=== PATIENT | male | born 1985 | race Caucasian/White ===

== ENCOUNTER 2021-08-27 13:38 | Emergency (ER) | payer MEDICAID, SELFPAY ==
[2021-08-27 13:38] VITALS: BP 163/113; PULSE 112; RESP 18; TEMP 36.6; O2SAT 96; BMI 36.5
--- NOTE | 2021-08-27 13:40 | ECG_ITS ---
APPROVED REPORT Exam: Resting ECG HR:106 bpm ECG Measurements Heart Rate 106 AXES MD 163 P 60 QRSd 81 QRS 61 QT 318 T 46 QTc 380 Conclusion SINUS TACHYCARDIA ABNORMAL RHYTHM ECG UNCONFIRMED REPORT Electronically signed by : Hema Tobar MD 08/28/2021 10:11:19
--- NOTE | 2021-08-27 13:40 | XR_ITS ---
FINAL REPORT CLINICAL HISTORY: cough, place on center of chest around sternum, pt says was found unconscious today COMPARISON: 06/25/2018 FINDINGS: Two views of the chest were obtained. The heart size is normal. There is mild pulmonary vascular congestion which is new as compared to the prior exam. There is mild bibasilar atelectasis. There is no pneumothorax. There are left 7th and 8th rib fractures favored to be chronic. IMPRESSION: New, mild pulmonary vascular congestion. Mild bibasilar atelectasis. Reviewed, Interpreted and Dictated by Ok Anderson III, MD Transcribed by Vikki Shi Authenticated by Ok Anderson III, MD on 08/27/2021 03:16:45 PM [facility]
--- NOTE | 2021-08-27 13:40 | HMH.EDGENADL ---
ED Disposition Clinical Impression: Accidental overdose Qualifiers: Encounter type: initial encounter Qualified Code(s): T50.901A - Poisoning by unspecified drugs, medicaments and biological substances, accidental (unintentional), initial encounter Disposition: Home, Self-Care Condition on Discharge: Good Instructions: DI for Drug Overdose in Adults Prescriptions: Naloxone HCl 4 mg NS ONCE PRN #1 kit PRN Reason: Opioid Reversal Transmission Status: Received by [id number] Referrals: Provider,Referral, [Primary Care Provider] - Time of Disposition: 15:28 - Critical Care Critical Care Time: No Attestation: On , the high probability of a clinically significant, sudden or life threatening deterioration of the following system(s) required my full and direct attention, intervention and personal management. The time I documented below is in addition to time spent performing reported procedures but includes the following listed in this critical care notation. Medical Decision Making - Medical Records Medical records reviewed: Yes: I reviewed the patient's medical records. - Philippe Inquiry Pt receiving controlled substance: No Vital Signs: 08/27/21 13:38 08/27/21 14:00 08/27/21 14:31 Temperature 97.9 F Temperature Source Oral Pulse Rate 111 H 96 H Pulse Rate [Right Radial] 112 H Respiratory Rate 18 Blood Pressure 177/99 H 148/99 H Blood Pressure [Right Arm] 163/113 H Blood Pressure Mean 112 Blood Pressure Mean [Right Arm] 129 Blood Pressure Source [Right Arm] Automatic Cuff Blood Pressure Position [Right Arm] Sitting 02 Sat by Pulse Oximetry 96 91 L 93 L Oxygen Delivery Method Room Air Room Air 08/27/21 16:15 Temperature 97.9 F Temperature Source Pulse Rate 96 H Pulse Rate [Right Radial] Respiratory Rate 18 Blood Pressure 148/99 H Blood Pressure [Right Arm] Blood Pressure Mean Blood Pressure Mean [Right Arm] Blood Pressure Source [Right Arm] Blood Pressure Position [Right Arm] 02 Sat by Pulse Oximetry Oxygen Delivery Method Room Air Medical Decision Narrative: In summary this is a 35-year-old male with history of substance use disorder, on Vivitrol, presenting to the emergency department after an episode of unconsciousness. He admits to intentional Xanax ingestion. Concern for opiate ingestion. Received naloxone about 30 minutes ago. Will obtain chest x-ray and EKG. Plan to observe in the emergency department EKG shows sinus rhythm X-ray shows possible pulmonary vascular congestion. Patient says he has had bronchitis-like symptoms for the past 2 weeks. Does not have shortness of breath at this time. He was observed in the emergency department for over 2 hours. Says he feels much better. Denies intentional overdose. Ambulating without difficulty. Tolerating oral intake. Plans to follow-up with his primary care doctor for Vivitrol injections. Will prescribe naloxone that another person could use for him or he could use for someone else. Counseled on dangers of taking medication not prescribed General Adult HPI - General Stated complaint: overdose Time Seen by Provider: 08/27/21 13:40 Mode of Arrival: EMS Source of Information: Patient Limitations: No Limitations - History of Present Illness HPI narrative: 35-year-old male presenting to the emergency department after episode of being unconscious. Bystanders found him sitting in a car, unresponsive. He got 4 mg of Narcan by police. When EMS arrived he was breathing, but unconscious. They administered another 4 mg of intranasal Narcan and he quickly woke up and was talking. Says he thought he took a Xanax that he got from a friend. Does not member what happened after that. Uses Xanax occasionally for anxiety. History of opiate use disorder. He is on Vivitrol injections. Has never been on daily medication like Suboxone or methadone. Denies alcohol. Denies other substance ingestion. Wh
[2021-08-27 14:00] VITALS: BP 177/99; PULSE 111; O2SAT 91
[2021-08-27 14:31] VITALS: BP 148/99; PULSE 96; O2SAT 93
--- NOTE | 2021-08-27 15:30 | PC.NURSE ---
Pt ambulated self to bathroom
--- NOTE | 2021-08-27 15:55 | PC.NURSE ---
pt attempting to call a ride
[2021-08-27 16:15] VITALS: BP 148/99; PULSE 96; RESP 18; TEMP 36.6; O2SAT 93
== END 2021-08-27 16:15 | disposition home or self-care (01) ==
PROVIDERS: Emergency Provider Emergency Medicine
DX: T42.4X1A Poisoning by benzodiazepines, accidental (unintentional), initial encounter (principal); R20.8 Other disturbances of skin sensation
CPT/HCPCS: 71046; 93005; 99283